=== PATIENT | male | born 1995 | race Caucasian/White ===

== ENCOUNTER 2019-04-07 19:47 | Emergency (ER) | payer OTHER ==
[2019-04-07] MEDS ORDERED: IBUPROFEN 600 MG TAB PO STA (21:32)
[2019-04-07] MEDS ORDERED: ACETAMINOPHEN TAB 500 MG TAB PO STA (21:32)
[2019-04-07] MEDS ORDERED: ONDANSETRON ODT 4 MG TAB PO STA (21:32)
--- NOTE | 2019-04-07 22:27 | ED ---
General Adult HPI - General Chief complaint: Headache Stated complaint: Diarrhea Time Seen by Provider: 04/07/19 20:47 Source: patient Mode of arrival: ambulatory Limitations: no limitations - History of Present Illness Initial comments: Patient is a 23-year-old male presents emergency Department with a headache. Patient reports a history of daily heroin use and this morning was his last dose. Patient reports he developed a headache 2 days ago that has not resolved. Patient reports the pain is located in the frontoparietal region. Patient reports nausea but no vomiting. Patient denies any light sensitivity. Patient denies blurry vision, chest pain, chest tightness, gait instability, shortness of breath. Patient reports the pain is exacerbated when attempting to move quickly and alleviated with rest. Patient reports the pain is throbbing in nature. Patient denies that this is the worse headache of his life. Patient appears very sleepy and has to be constantly stimulated to continue answering questions. - Related Data Home Medications Medication Instructions Recorded Confirmed Ibuprofen [Motrin] 800 mg PO DAILY PRN 04/07/19 04/07/19 Allergies Allergy/AdvReac Type Severity Reaction Status Date / Time No Known Allergies Allergy Verified 04/07/19 20:47 Review of Systems ROS Statement: Those systems with pertinent positive or pertinent negative responses have been documented in the HPI. ROS Other: All systems not noted in ROS Statement are negative. Past Medical History Additional Past Medical History / Comment(s): anxiety History of Any Multi-Drug Resistant Organisms: None Reported Past Surgical History: Hernia Repair Past Psychological History: Anxiety Smoking Status: Current every day smoker Past Alcohol Use History: None Reported Past Drug Use History: Heroin General Exam Limitations: no limitations General appearance: alert, in no apparent distress Head exam: Present: atraumatic, normocephalic, normal inspection Eye exam: Present: normal appearance. Absent: PERRL (Decreased papillary reaction), conjunctival injection Pupils: Present: miosis ENT exam: Present: normal exam, mucous membranes moist, normal external ear exam Neck exam: Present: normal inspection, full ROM Respiratory exam: Present: normal lung sounds bilaterally Cardiovascular Exam: Present: regular rate, normal rhythm, normal heart sounds Extremities exam: Present: full ROM, normal capillary refill. Absent: normal inspection (Injection sites and bilateral testicular regions.) Back exam: Present: normal inspection, full ROM Neurological exam: Present: alert, oriented X3 Psychiatric exam: Present: normal affect, normal mood Skin exam: Present: warm, intact, normal color Course Vital Signs 04/07/19 20:08 Temperature 99.1 F Pulse Rate 93 Respiratory 15 Rate Blood Pressure 102/59 O2 Sat by Pulse 98 Oximetry Medical Decision Making - Medical Decision Making Patient a 23-year-old male presenting to emergency Department with a headache. Patient was given Zofran, ibuprofen and Tylenol. No IVs were use because he is IVD. On reevaluation patient reports feels better and the headache has decreased in severity. Patient reports the nausea has resolved. Patient also appears to be more responsive as well. At this time patient will be discharged with the Zofran starter pack. Patient was given information about drug rehab with [facility]. Strict return parameters were thoroughly discussed with patient was understanding and agreeable. Case discussed with physician. Disposition Clinical Impression: Headache Disposition: HOME SELF-CARE Condition: Stable Instructions (If sedation given, give patient instructions): Acute Headache (ED) Additional Instructions: Please attempt to contact [facility] for substance abuse rehab. Please follow with primary care. Please return to emergency department if symptoms worsen. Is patient prescribed a controlled substance at d/c from ED?: No Referrals: None,Stated [Primary Care Provider] - 1-2 days Time of Disposition: 22:49
[2019-04-07 22:54] VITALS: BP 96/51; PULSE 88; RESP 16; TEMP 97.4
[2019-04-07] MEDS ORDERED: ONDANSETRON 4 MG ODT STARTER PACK 2 TAB BTL PO STA (23:04)
== END 2019-04-07 23:06 | disposition home or self-care (01) ==
LOC: EC 19:47
DX: R51 Headache (principal); R19.7 Diarrhea, unspecified; F17.200 Nicotine dependence, unspecified, uncomplicated
CPT/HCPCS: 99283; S0119

== ENCOUNTER 2020-08-01 22:16 | Emergency (ER) | payer OTHER ==
[2020-08-01 22:33] VITALS: BP 132/90; PULSE 96; RESP 20; TEMP 98.5
[2020-08-01] MEDS ORDERED: ACET/COD 300 MG/30 MG STARTER PACK 6 TAB BTL PO STA (22:42)
[2020-08-01] MEDS ORDERED: LIDOCAINE 1% INJ 10MG/ML (20 ML MDV) SQ ONE (22:42)
--- NOTE | 2020-08-01 22:56 | ED ---
General Adult HPI - General Chief complaint: Skin/Abscess/Foreign Body Stated complaint: Abscess Time Seen by Provider: 08/01/20 22:35 Source: patient, RN notes reviewed, old records reviewed Mode of arrival: ambulatory Limitations: no limitations - History of Present Illness Initial comments: 24-year-old male presents today with an abscess for the past week over the back of his neck. Patient reports history of multiple skin abscesses in the past. He does have a reported history of drug abuse. Patient reports no fevers or chills. He did take leftover clindamycin from an old antibiotic prescription the past day. - Related Data Home Medications Medication Instructions Recorded Confirmed Ibuprofen [Motrin] 800 mg PO DAILY PRN 04/07/19 04/07/19 Previous Rx's Medication Instructions Recorded Sulfamethox-Tmp 800-160Mg [Bactrim 2 tab PO Q12HR #40 tab 08/01/20 DS 800-160 mg] Allergies Allergy/AdvReac Type Severity Reaction Status Date / Time No Known Allergies Allergy Verified 08/01/20 22:33 Review of Systems ROS Statement: Those systems with pertinent positive or pertinent negative responses have been documented in the HPI. ROS Other: All systems not noted in ROS Statement are negative. Past Medical History Additional Past Medical History / Comment(s): anxiety History of Any Multi-Drug Resistant Organisms: None Reported Past Surgical History: Hernia Repair Past Psychological History: Anxiety Smoking Status: Current every day smoker Past Alcohol Use History: None Reported Past Drug Use History: Heroin General Exam - General Exam Comments Initial Comments: 24-year-old male. No distress Limitations: no limitations General appearance: alert, in no apparent distress Head exam: Present: atraumatic, normocephalic, normal inspection Eye exam: Present: normal appearance, PERRL, EOMI. Absent: scleral icterus, conjunctival injection, periorbital swelling ENT exam: Present: normal exam, normal oropharynx, mucous membranes moist Neck exam: Present: normal inspection, other (Patient has an abscess on the posterior neck. The area measures 3 cm x 2 cm. There is surrounding induration.). Absent: tenderness, meningismus, lymphadenopathy Respiratory exam: Present: normal lung sounds bilaterally. Absent: respiratory distress, wheezes, rales, rhonchi, stridor Cardiovascular Exam: Present: regular rate, normal rhythm, normal heart sounds. Absent: systolic murmur, diastolic murmur, rubs, gallop, clicks GI/Abdominal exam: Present: soft, normal bowel sounds. Absent: distended, tenderness, guarding, rebound, rigid Extremities exam: Present: normal inspection, full ROM, normal capillary refill. Absent: tenderness, pedal edema, joint swelling, calf tenderness Back exam: Present: normal inspection Neurological exam: Present: alert, oriented X3, CN II-XII intact Psychiatric exam: Present: normal affect, normal mood Skin exam: Present: warm, dry, intact, normal color. Absent: rash Course Vital Signs 08/01/20 22:29 Temperature 98.5 F Pulse Rate 96 Respiratory 20 Rate Blood Pressure 132/90 O2 Sat by Pulse 100 Oximetry Procedures - [place] Protocol (Time Out) Procedure Performed:: incision and drainage neck abscess Performing Provider: Kamille Sanchez Timeout Date: 08/01/20 Timeout Time: 23:55 Patient Identification (2 identifiers required): Chart Patient/Legal Offal Icer P[employer] has Confirmed: Identity Site: neck Site Marked: Yes Site Verified With Patient/Guardian: Yes Final Confirmation: Procedure, Site - Incision & Drainage Indication: 2 Site: neck Size (cm): 3 Anesthetic Used: lidocaine 1% Amount (mLs): 4 I&D Cleaning Method: Iodine Sterile Field Used?: Yes Scalpel Used: #11 I&D Drainage Obtained: Pus, Blood Packing: Iodoform Culture Obtained?: Yes Patient Tolerated Procedure: well, no complications Medical Decision Making - Medical Decision Making X-rays her child presents with a neck abscess. He has multiple areas of excoriations and this seems to be consistent with an infected carbuncle. Patient had incision and drainage performed and approximately 1 mL of purulent fluid was removed. Patient advised warm compress. The wound was packed and culture completed. Pt given starter pack of pain medication in ED and put the Patient on Bactrim. Advised to close follow-up with surgeon and PCP Disposition Clinical Impression: Neck abscess Disposition: HOME SELF-CARE Condition: Good Instructions (If sedation given, give patient instructions): Abscess (ED) Additional Instructions: Please use medication as discussed. triple warm compresses over the area of the neck. He needs antibiotic ointment as well. Take all the antibiotics. Please follow up with surgeon if symptoms have not improved over the next two days. Please return to the emergency room if your symptoms increase or worsen or for any other concerns. Prescriptions: Sulfamethox-Tmp 800-160Mg [Bactrim DS 800-160 mg] 2 tab PO Q12HR #40 tab Is patient prescribed a controlled substance at d/c from ED?: No Referrals: None,Stated [Primary Care Provider] - 1-2 days Mamadou Souza DO [Doctor of Osteopathic Medicine] - 1-2 days Time of Disposition: 23:31
[2020-08-01] MEDS ORDERED: SULFAMETH-TMP DS STARTER PACK 2 TAB BTL PO STA (23:31)
== END 2020-08-01 23:48 | disposition home or self-care (01) ==
LOC: EC 22:16
DX: L02.11 Cutaneous abscess of neck (principal); F19.11 Other psychoactive substance abuse, in remission; F17.200 Nicotine dependence, unspecified, uncomplicated
CPT/HCPCS: 87070; 87205; 99284; 10060; J2001

== ENCOUNTER 2022-06-25 20:15 | Emergency (ER) | payer OTHER ==
[2022-06-25 21:58] VITALS: TEMP 98.9
[2022-06-25 22:27] LABS: Basophils # (A) 0.1 k/uL (0-0.2); Basophils % (A) 1 %; Eosinophils # (A) 0.3 k/uL (0-0.7); Eosinophils % (A) 4 %; HCT 43.3 % (39.0-53.0); HGB 14.8 gm/dL (13.0-17.5); Lymphocytes # (A) 2.5 k/uL (1.0-4.8); Lymphocytes % (A) 31 %; MCH 31.2 pg (25.0-35.0); MCHC 34.3 g/dL (31.0-37.0); Mean Platelet Volume 8.1; Monocytes # (A) 0.5 k/uL (0-1.0); Monocytes % (A) 7 %; Neutrophils # (A) 4.7 k/uL (1.3-7.7); Neutrophils % (A) 56 %; Platelet Count 338 k/uL (150-450); RBC 4.76 m/uL (4.30-5.90); RDW 11.9 % (11.5-15.5); WBC 8.3 k/uL (3.8-10.6)
--- NOTE | 2022-06-25 22:31 | XR ---
EXAMINATION TYPE: XR chest 2V DATE OF EXAM: 06/25/2022 COMPARISON: NONE HISTORY: Weakness TECHNIQUE: 2 views FINDINGS: Heart and mediastinum are normal. Lungs are clear. Diaphragm is normal. Bony thorax is inta ct. IMPRESSION: Normal chest.
[2022-06-25 22:41] LABS: ALT 33 U/L (4-49); AST 36 U/L (17-59); African American GFR (CKD) >90 (>60 ml/min/1.73 sqM); Albumin 4.8 g/dL (3.5-5.0); Alkaline Phosphatase 107 U/L (38-126); Anion Gap 13 mmol/L; Blood Urea Nitrogen 14 mg/dL (9-20); Calcium 9.8 mg/dL (8.4-10.2); Carbon Dioxide 26 mmol/L (22-30); Chloride 99 mmol/L (98-107); Glucose 114 mg/dL (74-99); Non-African American GFR(CKD) >90 (>60 ml/min/1.73 sqM); Potassium 4.4 mmol/L (3.5-5.1); Sodium 138 mmol/L (137-145); Total Bilirubin 0.5 mg/dL (0.2-1.3); Total Protein 8.4 g/dL (6.3-8.2)
[2022-06-26] MEDS ORDERED: KETOROLAC 15 MG/ML 1 ML VIAL IM STA (00:03)
[2022-06-26] MEDS ORDERED: DEXAMETHASONE SOD PHOSPHATE 10 MG/ML 1 ML VIAL IM STA (00:03)
[2022-06-26] MEDS ORDERED: ONDANSETRON ODT 4 MG TAB PO STA (00:05)
[2022-06-26 00:40] VITALS: BP 129/89; PULSE 61; RESP 18
--- NOTE | 2022-06-26 00:46 | ED ---
General Adult HPI - General Chief complaint: Weakness Stated complaint: headache, neausea Time Seen by Provider: 06/25/22 23:40 Source: patient, RN notes reviewed Mode of arrival: ambulatory Limitations: no limitations - History of Present Illness Initial comments: 26-year-old male presents to the emergency department for evaluation of headache and nausea. Patient expresses concern about possible sepsis as he injects heroin daily. States he has had chills at home but no fever. Reports intermittent shortness of breath. States he has been tolerating oral intake but lacks appetite. States the symptoms began 3 days ago and have persisted. Has not taken anything to treat his headache discomfort. No aggravating or alleviating factors. Denies any open wounds, sores, or areas of redness. No dizziness, cough, congestion, chest pain, palpitations, difficulty breathing, abdominal pain, vomiting, diarrhea, or dysuria. - Related Data Home Medications Medication Instructions Recorded Confirmed Ibuprofen [Motrin] 800 mg PO DAILY PRN 04/07/19 04/07/19 Previous Rx's Medication Instructions Recorded Sulfamethox-Tmp 800-160Mg [Bactrim 2 tab PO Q12HR #40 tab 08/01/20 DS 800-160 mg] Allergies Allergy/AdvReac Type Severity Reaction Status Date / Time No Known Allergies Allergy Verified 08/01/20 22:33 Review of Systems ROS Statement: Those systems with pertinent positive or pertinent negative responses have been documented in the HPI. ROS Other: All systems not noted in ROS Statement are negative. Past Medical History Additional Past Medical History / Comment(s): anxiety History of Any Multi-Drug Resistant Organisms: MRSA Date of last positivie culture/infection: 08/01/20 MDRO Source:: MRSA NECK Past Surgical History: Hernia Repair Past Psychological History: Anxiety Smoking Status: Current every day smoker Past Alcohol Use History: None Reported Past Drug Use History: Heroin General Exam Limitations: no limitations (Well-developed, well-nourished male in no acute distress. Initial temperature 98.9, pulse 103, respirations 20, blood pressure 141/91, pulse ox 100% on room air.) General appearance: alert, in no apparent distress Head exam: Present: atraumatic, normocephalic, normal inspection Eye exam: Present: normal appearance, PERRL, EOMI. Absent: scleral icterus, conjunctival injection, periorbital swelling ENT exam: Present: normal exam, normal oropharynx, mucous membranes moist Neck exam: Present: normal inspection, full ROM. Absent: tenderness, meningismus, lymphadenopathy Respiratory exam: Present: normal lung sounds bilaterally. Absent: respiratory distress, wheezes, rales, rhonchi, stridor Cardiovascular Exam: Present: regular rate, normal rhythm, normal heart sounds. Absent: systolic murmur, diastolic murmur, rubs, gallop, clicks GI/Abdominal exam: Present: soft, normal bowel sounds. Absent: distended, tenderness, guarding, rebound, rigid Neurological exam: Present: alert, oriented X3, CN II-XII intact, normal gait Skin exam: Present: warm, dry, normal color, other (scabbed area of scarring to the right antecubital area at injection site. No erythema, edema, or drainage.). Absent: rash Course Vital Signs 06/25/22 06/26/22 21:55 00:00 Temperature 98.9 F Pulse Rate 103 H 61 Respiratory 20 18 Rate Blood Pressure 141/91 129/89 O2 Sat by Pulse 100 100 Oximetry - Reevaluation(s) Reevaluation #1: 06/26/22 00:02 Results were discussed. Patient's workup was initiated in triage. When placed in room, patient declines IV for further workup stating he prefers to go home. He is willing to consider IM medications. 06/26/22 00:44 Upon reassessment, patient reports feeling improved and expresses readiness for discharge home. Medical Decision Making - Medical Decision Making This is a pleasant 26-year-old male with a past medical history of IV drug abuse who presents to the emergency department for evaluation of headache and nausea. Upon exam, patient is well-appearing and in no acute distress. He is neurologically intact with no red flag findings. Laboratory studies were obtained and are unremarkable. Chest x-ray is negative. Patient declined IV therefore was given IM and oral medicines with improvement. He will be discharged home to follow up with his PCP for a recheck on Tuesday. Counseled on risks associated with IVDA. Return parameters were discussed in detail. Patient verbalizes understanding and agrees with this plan. Attending: you. - Lab Data Result diagrams: 06/25/22 22:09 06/25/22 22:09 Lab Results 10/14/22 10/14/22 10/14/22 Range/Units 22:03 22:09 22:09 WBC 8.3 (3.8-10.6) k/uL RBC 4.76 (4.30-5.90) m/uL Hgb 14.8 (13.0-17.5) gm/dL Hct 43.3 (39.0-53.0) % MCV 91.0 (80.0-100.0) fL MCH 31.2 (25.0-35.0) pg MCHC 34.3 (31.0-37.0) g/dL RDW 11.9 (11.5-15.5) % Plt Count 338 (150-450) k/uL MPV 8.1 Neutrophils % 56 % Lymphocytes % 31 % Monocytes % 7 % Eosinophils % 4 % Basophils % 1 % Neutrophils # 4.7 (1.3-7.7) k/uL Lymphocytes # 2.5 (1.0-4.8) k/uL Monocytes # 0.5 (0-1.0) k/uL Eosinophils # 0.3 (0-0.7) k/uL Basophils # 0.1 (0-0.2) k/uL Sodium 138 (137-145) mmol/L Potassium 4.4 (3.5-5.1) mmol/L Chloride 99 (98-107) mmol/L Carbon Dioxide 26 (22-30) mmol/L Anion Gap 13 mmol/L BUN 14 (9-20) mg/dL Creatinine 0.80 (0.66-1.25) mg/dL Est GFR (CKD-EPI)AfAm >90 (>60 ml/min/1.73 sqM) Est GFR (CKD-EPI)NonAf >90 (>60 ml/min/1.73 sqM) Glucose 114 H (74-99) mg/dL Plasma Lactic Acid Margarito (0.7-2.0) mmol/L Calcium 9.8 (8.4-10.2) mg/dL Total Bilirubin 0.5 (0.2-1.3) mg/dL AST 36 (17-59) U/L ALT 33 (4-49) U/L Alkaline Phosphatase 107 (38-126) U/L Total Protein 8.4 H (6.3-8.2) g/dL Albumin 4.8 (3.5-5.0) g/dL Coronavirus (PCR) Not Detected (Not Detectd) 06/25/22 Range/Units 22:09 WBC (3.8-10.6) k/uL RBC (4.30-5.90) m/uL Hgb (13.0-17.5) gm/dL Hct (39.0-53.0) % MCV (80.0-100.0) fL MCH (25.0-35.0) pg MCHC (31.0-37.0) g/dL RDW (11.5-15.5) % Plt Count (150-450) k/uL MPV Neutrophils % % Lymphocytes % % Monocytes % % Eosinophils % % Basophils % % Neutrophils # (1.3-7.7) k/uL Lymphocytes # (1.0-4.8) k/uL Monocytes # (0-1.0) k/uL Eosinophils # (0-0.7) k/uL Basophils # (0-0.2) k/uL Sodium (137-145) mmol/L Potassium (3.5-5.1) mmol/L Chloride (98-107) mmol/L Carbon Dioxide (22-30) mmol/L Anion Gap mmol/L BUN (9-20) mg/dL Creatinine (0.66-1.25) mg/dL Est GFR (CKD-EPI)AfAm (>60 ml/min/1.73 sqM) Est GFR (CKD-EPI)NonAf (>60 ml/min/1.73 sqM) Glucose (74-99) mg/dL Plasma Lactic Acid Margarito 1.1 (0.7-2.0) mmol/L Calcium (8.4-10.2) mg/dL Total Bilirubin (0.2-1.3) mg/dL AST (17-59) U/L ALT (4-49) U/L Alkaline Phosphatase (38-126) U/L Total Protein (6.3-8.2) g/dL Albumin (3.5-5.0) g/dL Coronavirus (PCR) (Not Detectd) - Radiology Data Radiology results: report reviewed, image reviewed Two-view chest x-ray was obtained. Report was reviewed in its entirety. Impression per Dr. Anne is normal chest. Disposition Clinical Impression: Headache Disposition: HOME SELF-CARE Condition: Stable Instructions (If sedation given, give patient instructions): Acute Headache (ED) Additional Instructions: May take Tylenol if needed for pain. Increase your intake of fluids. Avoid caffeine and stimulants. Consider lifestyle changes. Follow-up with your PCP for a recheck next week. Return to the emergency department with any new, worsening, or concerning symptoms. Is patient prescribed a controlled substance at d/c from ED?: No Referrals: None,Stated [Primary Care Provider] - 1-2 days Time of Disposition: 00:46
== END 2022-06-26 01:01 | disposition home or self-care (01) ==
LOC: EC 20:15
DX: R51.9 Headache, unspecified (principal); F41.9 Anxiety disorder, unspecified; F17.200 Nicotine dependence, unspecified, uncomplicated; Z20.822 Contact with and (suspected) exposure to COVID-19
CPT/HCPCS: 99285 ×2; 96372 ×3; 36415; 80053; 83605; 85025; 87635; 71046; J1100; J1885